=== PATIENT | male | born 1970 | race American Indian/Alaskan Native ===

== ENCOUNTER 2017-11-30 00:14 | Emergency (ER) | payer OTHER ==
[2017-11-30 00:32] VITALS: BP 146/91
[2017-11-30] MEDS ORDERED: MOTRIN ONE (00:39)
[2017-11-30] MEDS ORDERED: MOTRIN PO ONE (00:50)
--- NOTE | 2017-11-30 01:20 | XRay Report ---
FINAL REPORT EXAM: XR CHEST ROUTINE 2V HISTORY: chestpain COMPARISON: None available. FINDINGS:: Frontal and lateral views of the chest obtained. Cardiac silhouette is within normal limits. No focal consolidation or effusion. No pneumothorax. Visualized bony thorax is grossly intact. IMPRESSION:: No acute findings.
[2017-11-30] MEDS ORDERED: NORCO 5/325 PO ONE (03:28)
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
== END 2017-11-30 03:40 | disposition home or self-care (01) ==
LOC: ED 00:14
DX: R07.89 Other chest pain (principal); R06.02 Shortness of breath; F17.200 Nicotine dependence, unspecified, uncomplicated; V43.52XA Car driver injured in collision with other type car in traffic accident, initial encounter; Y93.89 Activity, other specified; Y92.488 Other paved roadways as the place of occurrence of the external cause; Y99.8 Other external cause status
CPT/HCPCS: 71046; 93005; 93010; 99283

== ENCOUNTER 2017-12-17 21:55 | Emergency (ER) | payer SELFPAY ==
[2017-12-17] MEDS ORDERED: ASPIRIN PO ONE (22:31)
[2017-12-17 22:48] LABS: Basophils # (Auto) 0.1 K/mm3 (0.0-0.1); Basophils % (Auto) 0.8 % (0.0-1.8); Eosinophils # (Auto) 0.3 K/mm3 (0.0-0.4); Eosinophils % (Auto) 2.6 % (0.0-4.3); Hematocrit 47.7 % (35.5-45.6); Hemoglobin 16.8 gm/dl (11.8-15.2); Lymphocytes # (Auto) 4.5 K/mm3 (1.2-5.4); Mean Corpuscular HGB Conc 35 % (32-34); Mean Corpuscular Hemoglobin 36 pg (28-32); Mean Corpuscular Volume 101 fl (84-94); Monocytes # (Auto) 0.5 K/mm3 (0.0-0.8); Monocytes % (Auto) 5.6 % (0.0-7.3); Platelet Count 286 K/mm3 (140-440); Red Blood Count 4.73 M/mm3 (3.65-5.03); Red Cell Distribution Width 13.7 % (13.2-15.2)
[2017-12-17 23:01] LABS: BUN/Creatinine Ratio 7; Blood Urea Nitrogen 5 mg/dL (9-20); Calcium 9.6 mg/dL (8.4-10.2); Hemolysis Index 15
--- NOTE | 2017-12-17 23:45 | XRay Report ---
FINAL REPORT PROCEDURE: Chest. TECHNIQUE: PA and lateral views. HISTORY: Chest pain. COMPARISON: Chest 11/29/2017. FINDINGS: The heart and mediastinum appear normal. The lungs are clear and mildly hyperinflated. There are no pleural effusions. The soft tissues are unremarkable. There is a mild thoracic scoliosis. IMPRESSION: Probable mild COPD.
[2017-12-18] MEDS ORDERED: SUBLIMAZE IV ONE (00:24)
[2017-12-18] MEDS ORDERED: ZOFRAN IV ONE (00:24)
[2017-12-18] MEDS ORDERED: TORADOL IV ONE (00:25)
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
--- NOTE | 2017-12-18 01:55 | Cat Scan Report ---
FINAL REPORT PROCEDURE: CT ANGIO CHEST TECHNIQUE: Computerized tomographic angiography of the chest was performed after the IV injection of iodinated nonionic contrast including image processing. The image data was postprocessed using 2-dimensional multiplanar reformatted (MPR) and 3-dimensional (MIP and/or volume rendered) techniques. HISTORY: left lower chest pain, shortness of breath, pleuri COMPARISON: No prior studies are available for comparison. FINDINGS: Heart and pericardium: Normal. Thoracic aorta: There is no thoracic aortic aneurysm or dissection.. Pulmonary vasculature: There is no pulmonary embolism.. Lymph nodes: No enlarged thoracic lymph nodes. Lungs: There is moderate COPD. There are emphysematous cystic changes at the lung apices greater on the right. There are no acute infiltrates.. Pleural space: There is no pleural effusion or pneumothorax.. Musculoskeletal structures: No significant abnormality. Upper abdominal structures: No significant abnormality. IMPRESSION: The heart size is normal. There is no thoracic aortic aneurysm or dissection.. There is no pulmonary embolism.. There is moderate COPD. There are emphysematous cystic changes at the lung apices greater on the right. There are no acute infiltrates.. There is no pleural effusion or pneumothorax..
[2017-12-18 03:32] VITALS: BP 99/66
== END 2017-12-18 03:33 | disposition home or self-care (01) ==
LOC: ED 21:55
DX: R09.1 Pleurisy (principal); F17.210 Nicotine dependence, cigarettes, uncomplicated
CPT/HCPCS: 36415; 71046; 71275; 80048; 84484; 85025; 93005; 93010; 96374; 96375; 99284; J1885; J2405; J3010; Q9967